=== PATIENT | male | born 1970 | race Caucasian/White ===

== ENCOUNTER 2020-02-20 09:50 | Outpatient (CLI) | payer BC ==
[2020-02-20] MEDS ORDERED: Iopamidol 370 76% 100 ML VIAL ONE (09:56)
--- NOTE | 2020-02-20 13:54 | CT ---
CT OF THE NECKKKK: DATE: 02/20/2020. COMPARISON: None. HISTORY: Evaluate right-sided neck mass. TECHNIQUE: Axial CT imaging at 3 mm intervals from the skull base through the lung apices with IV contrast. Cor onal and sagittal reformatted imaging obtained. FINDINGS: Imaged brain parenchyma grossly unremarkable. There is mucosal thickening of the ethmoid air cells on the right. The imaged lung apices appear grossly unremarkable. The retroantral fat and parapharyngeal fat appear clear bilaterally. Bilateral submandibular glands are unremarkable. The parotid gland on the left is unremarkable. The tonsillar pillars, oral tongue, and floor of mouth, epiglottis, thyroid gland, hyoid bone, cricoi d cartilage, and thyroid cartilage appear grossly unremarkable. There is abnormal soft tissue density measuring 3.3 cm craniocaudal dimension, 2.5 cm AP dimension, a nd 3.2 cm in transverse dimension abutting the ventral aspect of the epiglottis superior to the preep iglottic fat at the base of the tongue, posterior to the oral tongue and just superior to the hyoid b one. Hounsfield units of the soft tissue lesion is approximately 80-85 and punctate calcifications a re seen associated with this lesion along its inferior margin. This is most consistent with lingual tonsillar hypertrophy. There is a mass within the posterior aspect of the parotid gland on the right which measures 2.8 x 2. 7 x 4.5 cm. This lesion is heterogeneous with inferior areas of low density and central/superior are as of increased density. This involves the superficial lobe of the parotid gland. There is a compon ent of this lesion which is exophytic, emanating from the inferior aspect of the superficial lobe of right parotid gland abutting the right sternocleidomastoid muscle. There are multiple subcentimeter posterior triangle lymph nodes noted, right larger and more numerous than left. Posterior triangle lymph nodes on the right measure up to approximately 7-8 mm in short axis dimension. Vascular structures of the neck appear patent. No worrisome lytic or blastic bone lesion identified. IMPRESSION: 1. Lobulated heterogeneous soft tissue mass within the posterior aspect of the superficial lobe of t he right parotid gland suspicious for parotid neoplasm. Eusebia prominence within the posterior triang le may be related to malignancy. 2. Mass-like enlargement of the lingual tonsil. Direct visualization is recommended. This may repr esent a malignancy of the lingual tonsil. CODE T POS: [facility]
== END 2020-02-20 09:51 | disposition home or self-care (01) ==
LOC: BICCT 09:50
PROVIDERS: ATTEND Specialist
DX: R22.1 Localized swelling, mass and lump, neck (principal); M79.89 Other specified soft tissue disorders; J35.1 Hypertrophy of tonsils
CPT/HCPCS: 70491; Q9967

== ENCOUNTER 2020-03-10 06:29 | Outpatient (CLI) | payer BC, OTHER ==
[2020-03-10 17:14] LABS: Anion Gap 15 mmol/L (10-20); BUN (Urea Nitrogen) 18 mg/dL (8.9-20.6); Calc. Creatinine Clearance 0 mL/min (70-130); Calcium 9.4 mg/dL (7.8-10.44); Carbon Dioxide 21 mmol/L (22-29); Chloride 107 mmol/L (98-107); Estimated GFR-MDRD 76; Glucose 92 mg/dL (70-105); Sodium 139 mmol/L (136-145)
[2020-03-11 11:52] LABS: SARS-CoV-2 MS2 Positive; SARS-CoV-2 N Gene Negative; SARS-CoV-2 S Gene Negative; SARS-CoV-2 orf1ab Negative
--- NOTE | 2020-03-11 17:34 | EKG ---
Test Reason : Blood Pressure : / mmHG Vent. Rate : 095 BPM Atrial Rate : 095 BPM P-R Int : 132 ms QRS Dur : 082 ms QT Int : 328 ms P-R-T Axes : 044 056 046 degrees QTc Int : 412 ms Normal sinus rhythm Normal ECG No previous ECGs available Confirmed by NOLAN JUÁREZ, DR. Chavez ([id number]) on 03/11/2020 5:34:14 PM Referred By: MARSHA Confirmed By:DR. Scott FRANCISCO MD
== END 2020-03-10 06:30 | disposition home or self-care (01) ==
LOC: LABBT 06:29
PROVIDERS: ATTEND Specialist
DX: Z01.818 Encounter for other preprocedural examination (principal); Z11.59 Encounter for screening for other viral diseases; J35.1 Hypertrophy of tonsils; K11.8 Other diseases of salivary glands
CPT/HCPCS: 80048; 87635; 93005; 93010; U0003

== ENCOUNTER 2021-12-29 09:40 | Outpatient (CLI) | payer BC | END 2021-12-29 09:41 | disposition home or self-care (01) | LOC: ULT 09:40 | PROVIDERS: ATTEND Internal Medicine | DX: Z12.11 Encounter for screening for malignant neoplasm of colon (principal); R93.3 Abnormal findings on diagnostic imaging of other parts of digestive tract; R10.13 Epigastric pain; K74.60 Unspecified cirrhosis of liver | CPT/HCPCS: 76705 ==